=== PATIENT | female | born 1975 | race Caucasian/White ===

== ENCOUNTER 2018-05-11 00:49 | Emergency (ER) | payer BC, MEDICARE, SELFPAY ==
[2018-05-11 01:28] LABS: Clarity Cloudy (Clear); Leukocyte Large (Negative); Nitrite Positive (Negative)
[2018-05-11 01:29] LABS: Bilirubin Negative (Negative); Blood, Urine Small (Negative); Glucose, Urine (Dipstick) Negative (Negative); Protein, Urine (Dipstick) 100 mg/dL (Neg-Trace); Urobilinogen 0.2 mg/dL (0.2-1.0)
[2018-05-11 01:33] LABS: Bacteria/HPF 3+ HPF (None Seen); Squamous Epithelial 0-3 HPF (0-3)
[2018-05-11 01:43] LABS: ALT (SGPT) 35 U/L (8-55); AST (SGOT) 28 U/L (5-34); Albumin 4.1 g/dL (3.5-5.0); Alkaline Phosphatase 144 U/L (40-150); Anion Gap 15 mmol/L (10-20); BUN (Urea Nitrogen) 11 mg/dL (7.0-18.7); Bilirubin, Total 0.2 mg/dL (0.2-1.2); Calc. Creatinine Clearance 0 mL/min (70-130); Calcium 10.1 mg/dL (7.8-10.44); Carbon Dioxide 26 mmol/L (22-29); Chloride 104 mmol/L (98-107); Estimated GFR-MDRD Greater than 90; Globulin 3.2 g/dL (2.4-3.5); Glucose 107 mg/dL (70-105); Potassium 4.2 mmol/L (3.5-5.1); Protein, Total 7.3 g/dL (6.0-8.3); Sodium 141 mmol/L (136-145)
[2018-05-11 01:53] LABS: #Basophils 0.2 thou/uL (0.0-0.2); #Eosinphils 0.2 thou/uL (0.0-0.7); #Lymphocytes 4.3 thou/uL (1.20-3.40); #Monocytes 1.3 thou/uL (0.11-0.59); #Neutrophils 6.2 thou/uL (1.40-6.50); %Eosinophils 1.9 % (0.0-10.0); %Lymphocytes 35.1 % (21.0-51.0); %Monocytes 10.5 % (0.0-10.0); %Neutrophils 50.5 % (42.0-75.0); Band 3 % (5-11); Eosinophils 1 % (0-10); Hemoglobin 15.7 g/dL (12.0-16.0); Lymphocytes 32 % (21-51); MDiff Complete? YES; Mean Corpuscular HGB CONC 37.7 g/dL (32.0-36.0); Mean Corpuscular Volume 82.2 fL (78.0-98.0); Mean Platelet Volume 6.6 fL (7.4-10.4); Monocytes 11 % (0-10); Neutrophil 53 % (42-75); PLT Morphology Comment Appears Adequate; Platelet Count 254 thou/uL (130-400); RBC Distribution Width 11.9 % (11.5-14.5); Red Blood Cell (RBC) Count 5.06 mill/uL (4.20-5.40); Vacuoles SLIGHT; White Blood Cell (WBC) Count 12.2 thou/uL (4.8-10.8)
[2018-05-11] MEDS ORDERED: cefTRIAXone\\ROCEPHIN 1 GM VIAL ONE (02:02)
[2018-05-11] MEDS ORDERED: Nitrofurantoin Monohyd/M-Cryst 100 MG CAP PO SCH (02:15)
--- NOTE | 2018-05-11 10:03 | RAD ---
CHEST 2 VIEWS: DATE: 05/11/18. COMPARISON: Comparison is made with an 05/23/15 study. FINDINGS: The lung bases seen to have some slight increase in markings, right more than left, but not dramatica lly so. On the lateral view, there are some increased markings behind the heart. The findings sugge st the possibility of early infection, particularly in view of the patient running fever. The findin gs are not dramatic, but nevertheless present and different than the 2015 exam. Epidural stimulators are seen in the thoracic among other postop changes. The heart size is normal. There are no effusions or congestive changes. IMPRESSION: Mild increase in basilar lung markings. The possibility of early infection is raised. CODE T POS: HOME
== END 2018-05-11 02:20 | disposition home or self-care (01) ==
LOC: BURERS 00:49
DX: N30.00 Acute cystitis without hematuria (principal); E78.5 Hyperlipidemia, unspecified; I10 Essential (primary) hypertension; F17.210 Nicotine dependence, cigarettes, uncomplicated; Z79.899 Other long term (current) drug therapy
CPT/HCPCS: 36415; 71046; 80053; 81003; 81015; 83605; 85025; 96372; J0696